=== PATIENT | female | born 1950 ===

== ENCOUNTER 2017-09-17 05:40 | Day surgery (SDC) | payer OTHER ==
[~2017-09-17 05:40] MED LIST: BACLOFEN10 MG PO; GABAPENTIN300 MG PO; HUMULIN N100 UNIT/2 IM; HUMULIN R500 UNIT/2; LIPITOR20 MG PO; LISINOPRIL10 MG PO; OMEPRAZOLE40 MG PO
== END 2017-09-17 10:57 | disposition home or self-care (01) ==
LOC: CIR.AMB 05:40
DX: M65.842 Other synovitis and tenosynovitis, left hand (principal)

== ENCOUNTER 2017-11-12 05:00 | Day surgery (SDC) | payer OTHER | END 2017-11-12 10:04 | disposition home or self-care (01) | LOC: CIR.AMB 05:00 → ADM 14:30 → CIR.AMB 14:30 | DX: M65.841 Other synovitis and tenosynovitis, right hand (principal) ==